=== PATIENT | female | born 1995 | race Hispanic/Latino ===

== ENCOUNTER 2025-03-14 18:56 | Emergency (ER) | payer OTHER, SELFPAY ==
--- NOTE | 2025-03-14 19:24 | ED.BACK ---
HPI - Back Pain/Injury General Chief Complaint: Back Pain/Injury Stated Complaint: lower back pain, strained + fell Time Seen by Provider: 03/14/25 19:23 History of Present Illness HPI Narrative: 29-year-old female complains of low back pain and popping sensation this morning, increasing low back pain since, [id number]-right side. No previous back surgeries. No fevers or chills. No history of cancers or previous back problems. No bowel or bladder incontinence symptoms. No numbness or tingling to lower extremities. Hurts with movement bending. She took Tylenol. She has history of allergy to ibuprofen. Related Data Allergies Allergy/AdvReac Type Severity Reaction Status Date / Time ibuprofen Allergy Swelling Verified 03/14/25 19:25 of Lip/Tongue/Throat Patient History Social History Smoking Status: Never smoker Exam Narrative Exam Narrative: GENERAL: Well-developed patient, in mild distress. HEAD: Atraumatic. Normocephalic. EYES: Pupils equal round and reactive. Extraocular motions intact. No scleral icterus. No injection or drainage. ENT: Nose without bleeding, purulent drainage. Throat without erythema, tonsillar hypertrophy or exudate. Airway patent. NECK: Trachea midline. Non tender CARDIOVASCULAR: Regular rate and rhythm without murmurs, gallops, or rubs. RESPIRATORY: Clear to auscultation. Breath sounds equal bilaterally. No wheezes, rales, or rhonchi. GASTROINTESTINAL: Abdomen soft, non-tender, nondistended. EXTREMITIES: No edema or joint tenderness. BACK: Nontender without deformity or crepitance. No flank tenderness. No midline or paraspinous muscular tenderness. NEURO: AOx3. Motor functions grossly nonfocal. SKIN: No rash or erythema of visible areas Initial Vital Signs Initial Vital Signs: Vital Signs Temperature 98.3 F 03/14/25 19:25 Pulse Rate 88 03/14/25 19:25 Respiratory Rate 17 03/14/25 19:25 Blood Pressure 119/54 L 03/14/25 19:25 Pulse Oximetry 98 03/14/25 19:25 Oxygen Delivery Method Room Air 03/14/25 19:25 Course Orders Ordered: Discontinued Medications Lidocaine (Lidocaine 5% Patch) 1 each TOP DAILY STEPHANIE Lidocaine (Lidocaine 5% Patch) 1 each TOP NOW ONE Stop: 03/14/25 19:42 Last Admin: 03/14/25 19:46 Dose: 1 each Documented By: GUY Vital Signs Vital signs: Vital Signs - 8 hr 03/14/25 21:51 Pulse Rate 83 Respiratory Rate 16 Blood Pressure 94/52 L Pulse Oximetry 97 [facility] - Back Pain/Injury Lab Data Labs: Lab Results 03/14/25 Range/Units 20:02 Urine RBC 5-10/hpf H (0-5/HPF) Urine WBC 0-1/hpf (0-5/HPF) Ur Squamous Epith Cells 0-1 /hpf (0-5/HPF) Urine Bacteria Occasional (0-1) (None) Ur Culture Indicated? Cult not indicated Vol Urine Centrifuged 10ml (spun) Point of Care Testing Test Results Negative Urine Dip Bedside Urine Glucose Negative Bedside Urine Bilirubin - Negative Bedside Urine Ketone - Negative Urine Specific [place] 1.010 Bedside Urine Occult Blood +++ Bedside Urine pH 6.0 Bedside Urine Protein - Negative Bedside Urine Urobilinogen - Negative Bedside Urine Nitrite - Negative Bedside Urine Leukocytes - Negative Esterase Imaging Data Lumbar spine x-ray series: My Impression: No obvious compression fracture or spondylolisthesis or spondylolysis, ED wet read. (PACS system down, await over-read when PACs system allows, might not occur until tomorrow) Radiologist's Impression: [place] [address] XRay Report Signed Patient: Angelina Saucedo MR#: [id number] : 1995 Acct:[id number] Age/Sex: 29 / F Date of Service: 03/14/25 Loc: ED Accession Number: [id number] Procedure: XR lumbar spine 2-3V Ordering Provider: Renard Joshua MD PROCEDURE: XR LUMBAR SPINE 2-3V INDICATIONS: low back pain, pop sound, declines CT TECHNIQUE: 3 views of the lumbar spine were acquired. COMPARISON: None. FINDINGS: Bones: 5 [id number] vertebrae are present. There is normal bony alignment. No vertebral body compression fractures. No suspicious bony lesions. Soft tissues: Overlying bowel gas pattern is normal. No suspicious soft tissue calcifications. IMPRESSION: No acute compression fracture or spondylolisthesis in lumbar spine. Dictated by: Moi Amaya M.D. on 03/14/2025 at 23:50 Approved by: Moi Amaya M.D. on 03/14/2025 at 23:52 [facility] Narrative Medical decision making narrative: 29-year-old female without previous low back problems was carrying her son, felt a pop sensation in her low back, has had pain since that time. Nonradiating. No previous surgical interventions. No red flags history known cancers or IV drug use or demineralization problems or bone pathology problems. No incontinence symptoms. No numbness or tingling to lower extremities. Patient requests imaging. We discussed CT scan imaging, she would like x-ray imaging. X-ray lumbar spine without obvious fractures or spondylolisthesis or spondylolisthesis to my view. About 1 hour ago the PACS system went down here, unable to transmit images for radiology reading at this hour. Over reading likely we will occur tomorrow or when PACs system comes in online. No emergent over-read at this time. Patient informed this is a preliminary ED reading. Patient then asked about CT scanning, CT scans could be performed but not red tonight, and did not seem to be indicated at this time. Offered muscle relaxant, declined. Offered opiate analgesia, declined. She is allergic to Motrin, which causes hives. She can take Tylenol. Lidocaine patch applied. She was informed that lidocaine patches or available [id number] as well at to use if needed. We discussed warm pad hot water bottle treatments and stretching as tolerated, ice application measures. Recheck with your PCP advised in the next couple of days. Discharged home. Discharge Plan Departure Patient Disposition: Home Clinical Impression: Lumbosacral strain Instructions: DI for Low Back Pain Activity Restrictions/Additional Instructions: Low back pain and pop/crunch like sensation sound while carrying son earlier today. Requests for imaging. We initially discussed CT scanning, you preferred plain radiographs. Plain radiograph lumbar sacral series was done, unfortunately then the PACS transmission system went off line here, unable to send the images to Radiology. On my view of your lumbar sacral film series as no obvious fracture or malalignment changes. Over reading we will occur likely tomorrow or later tonight if PACs system becomes back online. We discussed muscle relaxant, you declined this. We discussed opiate pain medications, you declined this. You have allergy to Motrin/ibuprofen. Take Tylenol as needed for pain control. You can use lidocaine topical patches. Consider hot water bottle, muscle stretching. Recheck advised with your regular doctor in the next couple of days. Return to this/nearest emergency department for any change worsening symptoms or any concerns prior. Stand Alone Forms: Patient Portal/API
[2025-03-14 19:25] VITALS: BP 119/54; PULSE 88; RESP 17; TEMP 36.8; O2SAT 98; BMI 21.8
[2025-03-14] MEDS: LIDOCAINE 5% PATCH 1 EACH TOP (19:46)
--- NOTE | 2025-03-14 20:04 | DI.RAD.S_ITS ---
PROCEDURE: XR LUMBAR SPINE 2-3V INDICATIONS: low back pain, pop sound, declines CT TECHNIQUE: 3 views of the lumbar spine were acquired. COMPARISON: None. FINDINGS: Bones: 5 [id number]-[id number] vertebrae are present. There is normal bony alignment. No vertebral body compression fractures. No suspicious bony lesions. Soft tissues: Overlying bowel gas pattern is normal. No suspicious soft tissue calcifications. IMPRESSION: No acute compression fracture or spondylolisthesis in lumbar spine. Dictated by: Moi Amaya M.D. on 03/14/2025 at 23:50 Approved by: Moi Amaya M.D. on 03/14/2025 at 23:52
[2025-03-14 20:19] LABS: Culture Indicated Urine Cult Not Indicated
[2025-03-14 21:51] VITALS: BP 94/52; PULSE 83; RESP 16; O2SAT 97
== END 2025-03-14 22:05 | disposition home or self-care (01) ==
PROVIDERS: Emergency Provider Emergency Medicine
DX: S39.012A Strain of muscle, fascia and tendon of lower back, initial encounter (principal); X58.XXXA Exposure to other specified factors, initial encounter
CPT/HCPCS: 72100; 81003; 81015; 81025; 99283

== ENCOUNTER 2025-06-15 20:13 | Emergency (ER) | payer OTHER, SELFPAY ==
[2025-06-15 20:20] VITALS: BP 116/68; PULSE 88; RESP 20; TEMP 37.2; O2SAT 100; BMI 21.8
--- NOTE | 2025-06-15 20:47 | ED.URI ---
HPI - URI/Sore Throat General Chief Complaint: Upper Respiratory Symptoms Stated Complaint: SOB x 2 weeks ago /worsening Time Seen by Provider: 06/15/25 20:22 Source: patient Mode of arrival: Ambulatory History of Present Illness HPI Narrative: 30-year-old female patient with a history of Graves disease/hypothyroidism and asthma who complains of feeling tightness in her throat that is affecting her breathing. She was diagnosed with ?bronchitis? from symptoms that have been going on for 2 weeks with cough, congestion and scratchy throat. She now says she has no more cough but a tight feeling in her throat. She was on prednisone over a week ago and now today she was started back on a Medrol Dosepak in his taken 1 dose but feels no better. She was also prescribed doxycycline for uncertain indications. She denies anxiety. Related Data Allergies Allergy/AdvReac Type Severity Reaction Status Date / Time ibuprofen Allergy Swelling Verified 03/14/25 19:25 of Lip/Tongue/Throat Review of Systems Review of Systems ROS Unobtainable: All systems reviewed & are unremarkable except as noted in HPI and below ENT Ears, Nose, Mouth, and Throat: Reports as per HPI Respiratory Respiratory: Reports as per HPI Patient History Social History Smoking Status: Never smoker Smoking Status: Never smoker Exam Narrative Exam Narrative: General: Alert and conversant. Mild distress and anxiety. Appears well nourished and well hydrated. Craniofacial: No evidence of trauma. Nontender and no swelling. Eyes: PERRLA EOMI conjunctiva clear HEENT: Oropharynx clear with no swelling, exudate or asymmetry of the pharynx. Nares clear. No sinus tenderness Neck: No tenderness or adenopathy. No meningismus. No stridor. Lungs: Clear to auscultation with good air movement. No wheezing, rales or rhonchi. No respiratory distress Cardiac: Regular rate and rhythm with no appreciable murmur or gallop Abdomen: Soft, nontender with no distention or masses. Normal bowel sounds. No rebound or guarding Musculoskeletal: Exam of the extremities, axial spine and ribcage reveals no deformity, bony tenderness or swelling. Range of motion intact Neuro: Alert and oriented. Cranial nerves, motor, sensory and cerebellar all grossly intact. No focal deficit Skin: Warm and normal color. No rashes Psychological: Normal affect and interaction. No evidence of delusion or psychosis. Normal mood. However, she became quite tearful and frustrated when I explained that her exam and vitals were reassuring and that she was not in danger. Initial Vital Signs Initial Vital Signs: Vital Signs Temperature 99.0 F 06/15/25 20:20 Pulse Rate 88 06/15/25 20:20 Respiratory Rate 20 06/15/25 20:20 Blood Pressure 116/68 06/15/25 20:20 Pulse Oximetry 100 06/15/25 20:20 Oxygen Delivery Method Room Air 06/15/25 20:20 Course Orders Ordered: ED Orders 06/15/25 20:54 BMP [Basic Metabolic Panel] Stat CBC Auto Diff [Complete Blood Count AUTO DIFF] Stat Lactate (Lactic Acid) Stat Procalcitonin Stat TSH [Thyroid Stimulating Hormone] Stat 06/15/25 20:59 Chest [XR chest 2V] Stat 06/15/25 21:14 CT soft tissue neck w con Stat 06/15/25 21:40 Urine Microscopic Stat Vital Signs Vital signs: Vital Signs - 8 hr 06/15/25 20:20 06/15/25 22:21 Temperature 99.0 F Pulse Rate 88 91 H Respiratory Rate 20 14 Blood Pressure 116/68 125/59 L Pulse Oximetry 100 97 Oxygen Delivery Method Room Air Room Air MDM - URI/Sore Throat Lab Data Attestation: I reviewed the patient's lab results. Lab results narrative: WBCs 18.1. Otherwise unremarkable 06/15/25 20:54 06/15/25 20:54 Labs: Lab Results 06/15/25 06/15/25 Range/Units 20:54 21:40 WBC 18.1 H (4.5-11.0) X10^3/uL RBC 4.46 (4.0-5.2) X10^6/uL Hgb 13.9 (12.0-16.0) g/dL Hct 40.5 (36-46) % MCV 90.8 (80-100) fL MCH 31.0 (26-34) PG MCHC 34.2 (30-36) % RDW 13.1 (11.6-14.8) % Plt Count 322 (150-400) X10^3/uL Neut % (Auto) 94.8 H (50-75) % Lymph % (Auto) 4.2 L (25-40) % [place] % (Auto) 0.7 L (3-14) % Eos % (Auto) 0.0 L (2-4) % Baso % (Auto) 0.3 (0-2) % Neut # (Auto) 70902 H (6218-3620) /uL Lymph # (Auto) 800 L (8841-7821) /uL [place] # (Auto) 100 (0-900) /uL Eos # (Auto) 0 (0-450) /uL Baso # (Auto) 100 (0-100) /uL Sodium 139 (137-145) mmol/L Potassium 3.8 (3.4-5.1) mmol/L Chloride 104 (98-107) mmol/L Carbon Dioxide 22 (22-32) mmol/L BUN 10 (7-17) mg/dL Creatinine 0.56 (0.52-1.04) mg/dL Estimated GFR > 60 (>60) mL/min BUN/Creatinine Ratio 17.9 (6-22) Glucose 141 H (70-99) mg/dL Lactate 0.9 (0.7-2.1) mmol/L Calcium 10.0 (8.4-10.2) mg/dL Procalcitonin < 0.030 (<0.5) ng/mL TSH 0.578 (0.47-4.68) uIU/mL Urine RBC 0-1/hpf (0-5/HPF) Urine WBC 0-1/hpf (0-5/HPF) Ur Squamous Epith Cells 1-5 /hpf (0-5/HPF) Urine Bacteria Occasional (0-1) (None) Ur Culture Indicated? Cult not indicated Vol Urine Centrifuged 10ml (spun) Point of Care Testing Test Results Negative Urine Dip Bedside Urine Glucose Negative Bedside Urine Bilirubin - Negative Bedside Urine Ketone +/- 5 Urine Specific [place] 1.010 Bedside Urine Occult Blood + Bedside Urine pH 6.0 Bedside Urine Protein + 30 Bedside Urine Urobilinogen - Negative Bedside Urine Nitrite - Negative Bedside Urine Leukocytes - Negative Esterase Imaging Data Chest x-ray: Attestation: I personally reviewed and interpreted this imaging study as follows: My Impression: Impression: Unremarkable. No infiltrate or acute disease MDM Narrative Medical decision making narrative: On initial assessment in triage I felt that the patient had a mild URI with the feeling of tightness in the throat but she denies any anxiety which would point towards globus. She was frustrated to the point of tears to not have any tests ordered. For that reason I ordered some lab work. She refused the respiratory panel. I did order a chest x-ray also because she wanted to be certain she did not have pneumonia. Given her symptoms in the throat I decided to order a CT neck with contrast but then discussed the pros and cons with her and she was comfortable not doing that test. I agree that she does not have severe enough symptoms to need an emergent scan of the neck. She will monitor symptoms and follow up with ENT if she continues to have neck discomfort. I pointed out that the best next test would be a rhino laryngoscopy. Otherwise return to the ER if worse. Discharge Plan Departure Patient Disposition: Home Clinical Impression: Upper respiratory infection, Shortness of breath, Throat tightness Instructions: DI for Viral Upper Respiratory Infection -- Adult, DI for Shortness of Breath Activity Restrictions/Additional Instructions: Plan: Hydration, rest and supportive care. Monitor symptoms and follow up with your provider.. Follow up with ENT if throat symptoms persist. May need rhino laryngoscopy for assessment Referrals: Cam Heaton MD [Physician, Otolaryngology (ENT)] Referral Note: Follow up if symptoms persist Clinical Impression: Throat tightness Stand Alone Forms: Patient Portal/API
--- NOTE | 2025-06-15 20:57 | PC.NURSE ---
Pt declined resp panel nasal swab
--- NOTE | 2025-06-15 20:59 | DI.RAD.S_ITS ---
PROCEDURE: XR CHEST 2V INDICATIONS: Cough and shortness of breath over 2 weeks TECHNIQUE: 2 views of the chest were acquired. COMPARISON: None. FINDINGS: Surgical changes and devices: None. Lungs and pleura: Lungs are clear. No pleural effusions or pneumothorax. Mediastinum: Mediastinal contours are normal. Heart size is normal. Bones and chest wall: No suspicious bony abnormalities. Soft tissues appear unremarkable. IMPRESSION: No acute cardiopulmonary abnormality is seen. Dictated by: Neftaly Olmos M.D. on 06/15/2025 at 22:15 Approved by: Neftaly Olmos M.D. on 06/15/2025 at 22:16
[2025-06-15 21:02] LABS: Add Manual Diff / Slide Review NO; Hematocrit 40.5 % (36-46); Hemoglobin 13.9 g/dL (12.0-16.0); Lymphocytes Absolute Auto 800 /uL (1100-4500); Mean Corpuscular HGB Conc 34.2 % (30-36); Mean Corpuscular Hemoglobin 31.0 PG (26-34); Mean Corpuscular Volume 90.8 fL (80-100); Platelet Count 322 X10^3/uL (150-400)
[2025-06-15 21:14] LABS: Blood Urea Nitrogen 10 mg/dL (7-17); Calcium 10.0 mg/dL (8.4-10.2); Carbon Dioxide 22 mmol/L (22-32); Chloride 104 mmol/L (98-107); Estimated Glomerular Filt Rate > 60 mL/min (>60); Glucose 141 mg/dL (70-99); HEMOLYSIS < 15 (0-50); Potassium 3.8 mmol/L (3.4-5.1); Sodium 139 mmol/L (137-145)
[2025-06-15 21:28] LABS: Lactate (Lactic Acid) 0.9 mmol/L (0.7-2.1)
[2025-06-15 21:31] LABS: Procalcitonin < 0.030 ng/mL (<0.5)
[2025-06-15 21:45] LABS: Thyroid Stimulating Hormone 0.578 uIU/mL (0.47-4.68)
[2025-06-15 21:58] LABS: Culture Indicated Urine Cult Not Indicated
[2025-06-15 22:21] VITALS: BP 125/59; PULSE 91; RESP 14; O2SAT 97
== END 2025-06-15 22:38 | disposition home or self-care (01) ==
PROVIDERS: Emergency Provider Emergency Medicine
DX: J98.8 Other specified respiratory disorders (principal); R07.0 Pain in throat
CPT/HCPCS: 36415; 71046; 80048; 81003; 81015; 81025; 83605; 84145; 84443; 85025; 99283; 99284